=== PATIENT | female | born 1940 | race African-American/Black ===

== ENCOUNTER 2021-02-26 13:03 | Emergency (ER) | payer MEDICARE, SELFPAY ==
[~2021-02-26] VITALS: Ht 165.1 cm; Wt 63.5 kg
[~2021-02-26 13:03] MED LIST: AMLO2.5T2 PO; ASPI-859 PO; CARV12.548 PO; DONE10TA44 PO; ISOS30TA85 PO; LIP80 PO; LISI5TAB PO; NORT10CA PO; PRO40 PO; VENL75CA56 PO
[2021-02-26 13:16] VITALS: BP_SYST 141
[2021-02-26 13:59] LABS: BASOPHILS # (AUTO) 0.1 K/uL (0.0-0.2); BASOPHILS % (AUTO) 1.9 % (0.0-2.0); EOSINOPHILS # (AUTO) 0.8 K/uL (0.0-0.4); EOSINOPHILS % (AUTO) 11.7 % (0.0-4.0); HEMATOCRIT 35.7 % (36-48); HEMOGLOBIN 11.7 g/dL (12.0-16.0); LYMPHOCYTES # (AUTO) 1.3 K/uL (1.0-5.5); LYMPHOCYTES % (AUTO) 20.1 % (20.5-51.5); MEAN CORPUSCULAR HEMOGLOBIN 29 pg (27-31); MEAN CORPUSCULAR HGB CONC 33 % (32-36); MEAN CORPUSCULAR VOLUME 89 fL (79.0-98.0); MONOCYTES # (AUTO) 0.6 K/uL (0.0-1.0); MONOCYTES % (AUTO) 9.9 % (1.7-9.3); NEUTROPHILS # (AUTO) 3.7 K/uL (1.8-7.7); NEUTROPHILS % (AUTO) 56.4 % (40.0-70.0); PLATELET COUNT (AUTO) 152 K/uL (130-430); RED BLOOD CELL COUNT(AUTO) 4.04 MIL/uL (4.2-6.2); RED CELL DISTRIBUTION WIDTH 15.8 % (9.0-15.0); WHITE BLOOD COUNT (AUTO) 6.5 K/uL (4.8-10.8)
[2021-02-26 14:01] LABS: ANION GAP 5 (5-15); CALCIUM 9.2 mg/dL (8.4-11.0); CHLORIDE 110 mmol/L (98-107); CREATININE 1.55 mg/dL (0.55-1.30); GLUCOSE 113 mg/dL (70-99); SODIUM SERUM 146 mmol/L (136-145); UREA NITROGEN, BLOOD 22 mg/dL (8-21)
[2021-02-26 14:04] LABS: ACETONE, SERUM NEGATIVE (NEGATIVE)
[2021-02-26 14:08] LABS: ALANINE AMINOTRANSFERASE 29 U/L (12-78); ALBUMIN 3.2 g/dL (3.4-4.8); ASPARTATE AMINOTRANSFERASE 24 U/L (10-37); TOTAL BILIRUBIN 0.4 mg/dL (0.0-1.0)
[2021-02-26 14:12] LABS: INR 1.1 (0.8-1.2); PROTHROMBIN TIME 11.7 SECS (9.5-12.5)
[2021-02-26 15:01] LABS: BILIRUBIN,URINE NEGATIVE (NEGATIVE); BLOOD, URINE NEGATIVE (NEGATIVE); CLARITY/URINE CLEAR (CLEAR); COLOR,URINE YELLOW (YELLOW); GLUCOSE,URINE NEGATIVE (NEGATIVE); KETONES,URINE NEGATIVE (NEGATIVE); LEUKOCYTE ESTERASE ,URINE NEGATIVE (NEGATIVE); NITRITE, URINE NEGATIVE (NEGATIVE); PROTEIN URINE NEGATIVE (NEGATIVE); UROBILINOGEN,URINE 0.2 (0.2-1.0)
[2021-02-26 16:48] VITALS: BP_SYST 153
== END 2021-02-26 16:45 | disposition short-term general hospital (02) ==
LOC: SED 13:03
DX: S70.12XA Contusion of left thigh, initial encounter (principal); R53.1 Weakness; F03.90 Unspecified dementia, unspecified severity, without behavioral disturbance, psychotic disturbance, mood disturbance, and anxiety; I10 Essential (primary) hypertension; E11.9 Type 2 diabetes mellitus without complications; E78.00 Pure hypercholesterolemia, unspecified; Z20.822 Contact with and (suspected) exposure to COVID-19; Z88.8 Allergy status to other drugs, medicaments and biological substances; Z79.899 Other long term (current) drug therapy; W18.39XA Other fall on same level, initial encounter; Y93.89 Activity, other specified; Y92.89 Other specified places as the place of occurrence of the external cause; Y99.8 Other external cause status
CPT/HCPCS: 36415; 70450-TC; 71045; 76376; 80053; 81003; 82009; 82550; 83605; 84484; 85025; 85610-TC; 85730-TC; 93005; 99285

== ENCOUNTER 2021-04-07 20:55 | Emergency (ER) | payer MEDICARE, SELFPAY ==
[~2021-04-07] VITALS: Ht 165.1 cm; Wt 62.1 kg
[2021-04-07 21:05] VITALS: BP_SYST 147
--- NOTE | 2021-04-07 21:21 | NUR ---
Patient wheeled to bed 2 for evaluation
--- NOTE | 2021-04-07 21:32 | NUR ---
PT BIB FAMILY FOR COMPLAINTS OF RIGHT LEG SWELLING. PT IS A&OX1 AND FAMILY STATES IT IS HER BASELINE. FAMILY STATED IT STARTED YESTERDAY AND SHE HAS BEEN HAVING TROUBLE WALKING SINCE. THE FOOT IS HOT AND PAINFUL TO TOUCH.
--- NOTE | 2021-04-07 22:16 | NUR ---
ER at bedside examining patient.
[2021-04-07] MEDS ORDERED: VANCOMYCIN HCL 1,000 MG in NS 250 ML IV ONE (22:30)
[2021-04-07] MEDS ORDERED: NS 500 ML IV SCH (22:30)
[2021-04-07 23:30] LABS: BASOPHILS # (AUTO) 0.1 K/uL (0.0-0.2); BASOPHILS % (AUTO) 1.1 % (0.0-2.0); EOSINOPHILS # (AUTO) 0.7 K/uL (0.0-0.4); EOSINOPHILS % (AUTO) 7.7 % (0.0-4.0); HEMOGLOBIN 11.9 g/dL (12.0-16.0); LYMPHOCYTES # (AUTO) 1.5 K/uL (1.0-5.5); MEAN CORPUSCULAR HEMOGLOBIN 29 pg (27-31); MEAN CORPUSCULAR HGB CONC 33 % (32-36); MEAN CORPUSCULAR VOLUME 88 fL (79.0-98.0); MONOCYTES # (AUTO) 0.9 K/uL (0.0-1.0); MONOCYTES % (AUTO) 9.2 % (1.7-9.3); NEUTROPHILS # (AUTO) 6.5 K/uL (1.8-7.7); PLATELET COUNT (AUTO) 206 K/uL (130-430); RED BLOOD CELL COUNT(AUTO) 4.11 MIL/uL (4.2-6.2); RED CELL DISTRIBUTION WIDTH 15.8 % (9.0-15.0); WHITE BLOOD COUNT (AUTO) 9.7 K/uL (4.8-10.8)
[2021-04-07 23:48] LABS: ANION GAP 14 (5-15); CALCIUM 9.4 mg/dL (8.4-11.0); CHLORIDE 108 mmol/L (98-107); CREATININE 1.35 mg/dL (0.55-1.30); GLUCOSE 101 mg/dL (70-99); POTASSIUM 4.1 mmol/L (3.5-5.1); SODIUM SERUM 146 mmol/L (136-145); UREA NITROGEN, BLOOD 23 mg/dL (8-21)
[2021-04-07 23:54] LABS: ALANINE AMINOTRANSFERASE 36 U/L (12-78); ALBUMIN 3.4 g/dL (3.4-4.8); ASPARTATE AMINOTRANSFERASE 33 U/L (10-37); INR 1.1 (0.8-1.2); PROTHROMBIN TIME 11.1 SECS (9.5-12.5); TOTAL BILIRUBIN 0.4 mg/dL (0.0-1.0)
[2021-04-07] MEDS ORDERED: VANCOMYCIN HCL 1000 MG/VIAL IV ONE (23:56)
--- NOTE | 2021-04-08 00:10 | NUR ---
IN/OUT CATHETOR USED TO OBTAIN URINE FOR UA. PT TOLERATED WELL
[2021-04-08 00:41] LABS: BILIRUBIN,URINE NEGATIVE (NEGATIVE); CLARITY/URINE CLEAR (CLEAR); COLOR,URINE YELLOW (YELLOW); GLUCOSE,URINE NEGATIVE (NEGATIVE); KETONES,URINE NEGATIVE (NEGATIVE); LEUKOCYTE ESTERASE ,URINE NEGATIVE (NEGATIVE); NITRITE, URINE NEGATIVE (NEGATIVE); PROTEIN URINE NEGATIVE (NEGATIVE); UROBILINOGEN,URINE 0.2 (0.2-1.0)
[2021-04-08 00:43] LABS: BLOOD, URINE TRACE (NEGATIVE)
[2021-04-08 01:03] LABS: BACTERIA,URINE RARE /HPF (None Seen); WBC,URINE 0-3 /HPF (0-3)
--- NOTE | 2021-04-08 02:27 | NUR ---
Patient to be transferred to [facility] ER. Is being transferred due to INSURANCE REQUEST. Receiving facility has accepting physician and available space. ER physician has signed transfer form. Patient or responsible constitution party has agreed to transfer and signed form. Patient belongings inventoried and will be sent with patient. Copy of nursing notes, lab reports, EKG, Physicians Orders and X-rays to be sent with patient. Report called to [facility] at receiving facility. Receiving physician is Keshia MCCALLUM. [facility] has been called for transfer. ETA is [id number].
[2021-04-08 02:30] VITALS: BP_SYST 160
--- NOTE | 2021-04-08 02:30 | NUR ---
[facility] here for bls transport. report given. patient transported in stable condition. VSS.
== END 2021-04-08 02:30 | disposition short-term general hospital (02) ==
LOC: SED 20:55
DX: L03.115 Cellulitis of right lower limb (principal); M25.461 Effusion, right knee; M25.471 Effusion, right ankle; I10 Essential (primary) hypertension; E11.9 Type 2 diabetes mellitus without complications; Z20.822 Contact with and (suspected) exposure to COVID-19; Z79.899 Other long term (current) drug therapy; Z88.8 Allergy status to other drugs, medicaments and biological substances
CPT/HCPCS: 36415; 73590; 73610; 73630; 80053; 81000; 83605; 85025; 85610; 85730; 87040; 87426; 93971; 96365; 96366; 99285; J3370